=== PATIENT | female | born 2000 | race Caucasian/White ===

== ENCOUNTER 2019-02-24 15:32 | Emergency (ER) | payer MEDICAID ==
[~2019-02-24] VITALS: Ht 160 cm; Wt 60.8 kg
[2019-02-24 15:43] VITALS: BP 127/73
--- NOTE | 2019-02-24 15:52 | NUR ---
TO BED 3 WITH STEADY GAIT
--- NOTE | 2019-02-24 15:55 | NUR ---
PT AMBULATED TO ER BED 05
--- NOTE | 2019-02-24 15:58 | NUR ---
URINE COLLECTED AND SENT TO LAB
--- NOTE | 2019-02-24 16:12 | NUR ---
C/O PAIN AND BURNING DURING URINATION WITH INCREASED URGENCY AND FREQUENCY, AND LOWER BILAT ABD PAIN 6/10 ACHING. PT REPORTS YELLOW/WHITE DISCHARGE X 3 DAYS. PT DENIES FOUL ODOR. DENIES N/V/D/FEVER. BED IN LOW POSITION, SIDE RAIL UP X1. BOYFIEND AT BEDSIDE.
--- NOTE | 2019-02-24 16:22 | NUR ---
PROVIDED PT Silvina REYES, DISCUSSED TRANS VAGINAL U/S
--- NOTE | 2019-02-24 16:31 | NUR ---
US AT BEDSIDE
--- NOTE | 2019-02-24 16:31 | NUR ---
ULTRASOUND AT BEDSIDE
[2019-02-24 16:39] LABS: BASOPHILS % (AUTO) 0.3 % (0.0-2.0); EOSINOPHILS # (AUTO) 0.1 K/uL (0-0.4); EOSINOPHILS % (AUTO) 0.6 % (0.0-4.0); HEMOGLOBIN 12.7 g/dL (12.0-16.0); LYMPHOCYTES # (AUTO) 1.8 K/uL (2.5-16.5); LYMPHOCYTES % (AUTO) 21.8 % (20.5-51.1); MEAN CORPUSCULAR HEMOGLOBIN 32 pg (27-31); MEAN CORPUSCULAR HGB CONC 34 g/dL (33-37); MEAN CORPUSCULAR VOLUME 93.1 fL (80-94); MONOCYTES # (AUTO) 0.5 K/uL (0.8-1.0); MONOCYTES % (AUTO) 5.8 % (1.7-9.3); NEUTROPHILS # (AUTO) 5.8 K/uL (1.8-7.7); NEUTROPHILS % (AUTO) 71.5 % (42.2-75.2); PLATELET COUNT (AUTO) 218 K/uL (140-450); RED BLOOD CELL COUNT(AUTO) 3.97 MIL/uL (4.20-5.40); RED CELL DISTRIBUTION WIDTH 13.2 % (11.6-13.7)
[2019-02-24 16:39] LABS: APPEARANCE,URINE SL CLOUDY (CLEAR); BILIRUBIN,URINE NEGATIVE (NEGATIVE); COLOR,URINE YELLOW (YELLOW); LEUKOCYTE ESTERASE ,URINE NEGATIVE (NEGATIVE); NITRITE, URINE NEGATIVE (NEGATIVE); PH,URINE 6.5 (5.0-9.0); UGLUCOSE 3+ (NEGATIVE)
[2019-02-24 16:44] LABS: BLOOD, URINE NEGATIVE (NEGATIVE)
[2019-02-24 16:59] LABS: ANION GAP 10.3 (8-16); CARBON DIOXIDE 27.2 mmol/L (21-32); CREATININE 0.6 mg/dL (0.6-1.3); POTASSIUM 3.5 mmol/L (3.5-5.1)
[2019-02-24 17:12] LABS: ALBUMIN 3.6 g/dL (3.4-5.0); TOTAL BILIRUBIN 0.2 mg/dL (0.0-1.0)
[2019-02-24 18:59] VITALS: BP 119/80
--- NOTE | 2019-02-24 18:59 | NUR ---
Patient discharged with v/s stable. Written and verbal after care instructions given and explained. Patient verbalized understanding. Ambulatory with steady gait. All questions addressed prior to discharge. Advised to follow up with PMD.
== END 2019-02-24 18:59 | disposition home or self-care (01) ==
LOC: MED 15:32
DX: O24.419 Gestational diabetes mellitus in pregnancy, unspecified control (principal); F12.10 Cannabis abuse, uncomplicated; Z79.84 Long term (current) use of oral hypoglycemic drugs; Z3A.18 18 weeks gestation of pregnancy; Z90.49 Acquired absence of other specified parts of digestive tract; Z71.51 Drug abuse counseling and surveillance of drug abuser
CPT/HCPCS: 36415; 76805; 80053; 81003; 81025; 82948; 84702; 85025; 87086; 99284

== ENCOUNTER 2019-10-02 21:13 | Emergency (ER) | payer MEDICAID ==
[~2019-10-02] VITALS: Ht 160 cm; Wt 61.7 kg
[2019-10-02 22:35] VITALS: BP 111/77
--- NOTE | 2019-10-03 01:00 | NUR ---
PATIENT STATES NO NEW COMPLAINTS AT THIS TIME.
[2019-10-03 01:05] VITALS: BP 128/63
--- NOTE | 2019-10-03 03:00 | NUR ---
PATIENT LWBS AT THIS TIME
--- NOTE | 2019-10-03 03:00 | NUR ---
PATIENT CALLED FOR RECHECK, NO ANSWER
--- NOTE | 2019-10-03 03:20 | NUR ---
SECOND CALL NO RESPONSE.
--- NOTE | 2019-10-03 03:40 | NUR ---
3RD CALL NO RESPONSE
== END 2019-10-03 03:00 | disposition left against medical advice (07) ==
LOC: MED 21:13
DX: Z53.21 Procedure and treatment not carried out due to patient leaving prior to being seen by health care provider (principal); N89.8 Other specified noninflammatory disorders of vagina
CPT/HCPCS: 81002; 81025

== ENCOUNTER 2019-10-05 14:53 | Emergency (ER) | payer MEDICAID ==
[~2019-10-05] VITALS: Ht 160 cm; Wt 61.7 kg
[2019-10-05 15:10] VITALS: BP 116/77
--- NOTE | 2019-10-05 15:13 | NUR ---
TO LOBBY A/W BED AMBULATORY
--- NOTE | 2019-10-05 16:00 | NUR ---
Patient ambulated to bed 5. RN evaluating patient at bedside.
--- NOTE | 2019-10-05 16:07 | NUR ---
URINE CUP HANDED TO PT FOR SAMPLE
--- NOTE | 2019-10-05 16:20 | NUR ---
19 y/o f presents to ER c/o vaginal pain x 1 week. Pt was on antibiotics in August for same symptoms. Vaginal pain burning, itching, redness, with some bumps. Pain level 7/10. Pt reports vaginal bleeding, spotting while wiping. Pt also reports white thin discharge. ERMD made aware of pt status. Allergies: NKA Med hx: francis
[2019-10-05] MEDS ORDERED: AZITHROMYCIN 250 MG TAB PO ONE (16:30)
[2019-10-05] MEDS ORDERED: cefTRIAXone 250 MG in LIDOCAINE MPF 1% 0.9 ML IM ONE (16:30)
--- NOTE | 2019-10-05 16:52 | NUR ---
Dr. Escamilla and nurse Halle at bedside for pelvic exam.
[2019-10-05] MEDS ORDERED: cefTRIAXone 250 MG VIAL ONE (16:55)
--- NOTE | 2019-10-05 16:55 | NUR ---
Vaginal Swab collected and sent to lab
[2019-10-05] MEDS ORDERED: LIDOCAINE MPF 1% 5 ML ONE (16:56)
[2019-10-05 17:20] VITALS: BP 120/78
--- NOTE | 2019-10-05 17:20 | NUR ---
Note ammy in EDM - 10/05/19 at 1721 by [facility] Patient discharged with v/s stable. Written and verbal after care instructions given and explained. Patient alert, oriented and verbalized understanding of instructions. Ambulatory with steady gait. All questions addressed prior to discharge. ID band removed. Patient advised to follow up with PMD. Rx of Valacyclovir Hydrochloride 1g and Diflucan 150mg given. Patient educated on indication of medication including possible reaction and side effects. Opportunity to ask questions provided and answered.
== END 2019-10-05 17:20 | disposition home or self-care (01) ==
LOC: MED 14:53
DX: N89.8 Other specified noninflammatory disorders of vagina (principal); E11.9 Type 2 diabetes mellitus without complications; R10.2 Pelvic and perineal pain; L29.9 Pruritus, unspecified
CPT/HCPCS: 36415; 81002; 81025; 87529; 96372; 99283; J0696; J2001

== ENCOUNTER 2019-11-14 16:05 | Emergency (ER) | payer MEDICAID ==
[~2019-11-14] VITALS: Ht 161.3 cm; Wt 62.6 kg
[2019-11-14 16:09] VITALS: BP 155/69
--- NOTE | 2019-11-14 16:17 | NUR ---
AMB TO BED 04, ASKED PT TO CHANGE TO GOWN
--- NOTE | 2019-11-14 16:20 | NUR ---
ROYAL BROWNE AT BEDSIDE.
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
[2019-11-14] MEDS ORDERED: KETOROLAC 30 MG/ML VIAL IM ONE (16:35)
--- NOTE | 2019-11-14 16:36 | NUR ---
ROYAL BROWNE AT BEDSIDE REEVALUATING PT.
--- NOTE | 2019-11-14 17:10 | NUR ---
xray at bedside.
--- NOTE | 2019-11-14 17:15 | NUR ---
pt to ctscan vi awheelchair.
[2019-11-14 18:17] VITALS: BP 150/70
--- NOTE | 2019-11-14 18:17 | NUR ---
Patient discharged with v/s stable. Written and verbal after care instructions given and explained regarding back pain. Patient alert, oriented and verbalized understanding of instructions. Ambulatory with steady gait. All questions addressed prior to discharge. ID band removed. Patient advised to follow up with PMD. Rx of flexeril and ibuprofen given. Patient educated on indication of medication including possible reaction and side effects. Opportunity to ask questions provided and answered.
== END 2019-11-14 18:17 | disposition home or self-care (01) ==
LOC: MED 16:05
DX: S50.12XA Contusion of left forearm, initial encounter (principal); M54.6 Pain in thoracic spine; M79.10 Myalgia, unspecified site; E11.9 Type 2 diabetes mellitus without complications; W14.XXXA Fall from tree, initial encounter; Y93.89 Activity, other specified; Y92.89 Other specified places as the place of occurrence of the external cause; Y99.8 Other external cause status
CPT/HCPCS: 71250; 73060; 81002; 81025; 96372; 99284; J1885; Q0092

== ENCOUNTER 2019-12-21 18:48 | Inpatient (IN) | payer MEDICAID ==
[~2019-12-21] VITALS: Ht 162.6 cm; Wt 61.2 kg
[2019-12-21 18:51] VITALS: BP 160/98
[2019-12-21 19:14] LABS: BASOPHILS # (AUTO) 0.1 K/uL (0.00-0.22); BASOPHILS % (AUTO) 0.6 % (0.0-2.0); EOSINOPHILS % (AUTO) 0.4 % (0.0-4.0); HEMATOCRIT 45.3 % (36-48); HEMOGLOBIN 15.5 g/dL (12.0-16.0); LYMPHOCYTES # (AUTO) 1.3 K/uL (2.5-16.5); LYMPHOCYTES % (AUTO) 13.7 % (20.5-51.1); MEAN CORPUSCULAR HEMOGLOBIN 32 pg (27-31); MEAN CORPUSCULAR HGB CONC 34 g/dL (33-37); MEAN CORPUSCULAR VOLUME 92.2 fL (80-94); MONOCYTES # (AUTO) 0.4 K/uL (0.8-1.0); MONOCYTES % (AUTO) 4.1 % (1.7-9.3); NEUTROPHILS # (AUTO) 7.8 K/uL (1.8-7.7); NEUTROPHILS % (AUTO) 81.2 % (42.2-75.2); PLATELET COUNT (AUTO) 201 K/uL (140-450); RED BLOOD CELL COUNT(AUTO) 4.91 MIL/uL (4.20-5.40); RED CELL DISTRIBUTION WIDTH 12.9 % (11.6-13.7); WHITE BLOOD COUNT (AUTO) 9.6 K/uL (4.5-11.0)
[2019-12-21 19:46] LABS: ALBUMIN 4.6 g/dL (3.4-5.0); ANION GAP 15.2 (8-16); ASPARTATE AMINOTRANSFERASE 13 U/L (15-37); CARBON DIOXIDE 28.7 mmol/L (21-32); CHLORIDE 100 mmol/L (98-107); CREATININE 0.9 mg/dL (0.6-1.3); GFR ARICAN-AMERICAN 103 mL/min (>90); GLUCOSE 283 mg/dL (74-106); POTASSIUM 4.9 mmol/L (3.5-5.1); SODIUM SERUM 139 mmol/L (136-145); TOTAL BILIRUBIN 0.5 mg/dL (0.0-1.0); UREA NITROGEN, BLOOD 14 mg/dL (7-18)
[2019-12-21 19:47] LABS: ACETAMINOPHEN < 0.5 ug/ml (10-30); SALICYLATE < 2.8 mg/dL (2.8-20.0)
[2019-12-21 20:06] LABS: APPEARANCE,URINE CLEAR (CLEAR); BILIRUBIN,URINE NEGATIVE (NEGATIVE); BLOOD, URINE NEGATIVE (NEGATIVE); COLOR,URINE YELLOW (YELLOW); LEUKOCYTE ESTERASE ,URINE NEGATIVE (NEGATIVE); NITRITE, URINE NEGATIVE (NEGATIVE); UGLUCOSE 3+ (NEGATIVE)
[2019-12-21 20:22] LABS: BARBITURATE, URINE NEGATIVE ng/ml (NEG <=200); BENZODIAZEPINE, URINE NEGATIVE ng/mL (NEG <=200); CANNABINOID, URINE NEGATIVE ng/mL (NEG <=50); COCAINE, URINE NEGATIVE ng/mL (NEG <=300); OPIATE, URINE NEGATIVE ng/mL (NEG <=2000); PHENCYCLIDINE SCREEN,URINE NEGATIVE ng/mL (NEG <=25)
[2019-12-21] MEDS ORDERED: INTUBATION KIT MC ONE (21:37)
[2019-12-21] MEDS ORDERED: NACL 0.9% 1,000 ML IV SCH (23:43)
[2019-12-21] MEDS ORDERED: ONDANSETRON 4 MG/2 ML VIAL IM/IVP PRN (23:45)
[2019-12-21] MEDS ORDERED: HYDROcodone/APAP 5/325 MG 1 TAB TAB PO PRN (23:45)
[2019-12-21] MEDS ORDERED: DOCUSATE SODIUM 100 MG GELCAP PO PRN (23:45)
[2019-12-21] MEDS ORDERED: ACETAMINOPHEN 325 MG TAB PO PRN (23:45)
[2019-12-21] MEDS ORDERED: INSULIN LISPRO SLIDING SCALE 100 UNITS/ML VIAL SUBQ PRN (23:50)
[2019-12-21] MEDS ORDERED: DEXTROSE 50% 50 ML SYR IVP PRN (23:50)
[2019-12-22 00:11] LABS: MAGNESIUM 1.6 mg/dL (1.8-2.4); PHOSPHORUS 3.1 mg/dL (2.5-4.9)
[2019-12-22 00:30] VITALS: BP 123/83
[2019-12-22 00:34] VITALS: BP 129/85
[2019-12-22] MEDS ORDERED: GLIP10TA3 PO (00:50)
[2019-12-22 06:06] VITALS: BP 117/75
[2019-12-22 07:16] LABS: BASOPHILS % (AUTO) 0.2 % (0.0-2.0); EOSINOPHILS # (AUTO) 0.1 K/uL (0-0.4); EOSINOPHILS % (AUTO) 1.5 % (0.0-4.0); HEMATOCRIT 38.8 % (36-48); HEMOGLOBIN 13.4 g/dL (12.0-16.0); LYMPHOCYTES # (AUTO) 3.1 K/uL (2.5-16.5); MEAN CORPUSCULAR HEMOGLOBIN 32 pg (27-31); MEAN CORPUSCULAR HGB CONC 35 g/dL (33-37); MEAN CORPUSCULAR VOLUME 92.2 fL (80-94); MONOCYTES # (AUTO) 0.6 K/uL (0.8-1.0); MONOCYTES % (AUTO) 7.9 % (1.7-9.3); NEUTROPHILS # (AUTO) 3.9 K/uL (1.8-7.7); NEUTROPHILS % (AUTO) 50.4 % (42.2-75.2); PLATELET COUNT (AUTO) 176 K/uL (140-450); RED BLOOD CELL COUNT(AUTO) 4.21 MIL/uL (4.20-5.40); RED CELL DISTRIBUTION WIDTH 12.9 % (11.6-13.7); WHITE BLOOD COUNT (AUTO) 7.7 K/uL (4.5-11.0)
[2019-12-22 07:22] LABS: ANION GAP 14.8 (8-16); CARBON DIOXIDE 25.5 mmol/L (21-32); CREATININE 0.7 mg/dL (0.6-1.3); POTASSIUM 3.3 mmol/L (3.5-5.1)
[2019-12-22] MEDS ORDERED: BLOOD GLUCOSE MONITORING 1 DEV DEV FS SCH (07:30)
[2019-12-22 15:29] LABS: CHOL/HDL RATIO 3.5 (1-4.5)
== END 2019-12-22 08:40 | DRG 420 ==
LOC: MED 18:48 → MTU 23:48
PROVIDERS: ADMIT General Practice; ATTEND General Practice
DX: E11.65 Type 2 diabetes mellitus with hyperglycemia (principal); R45.851 Suicidal ideations; R82.4 Acetonuria; S51.812A Laceration without foreign body of left forearm, initial encounter; X99.9XXA Assault by unspecified sharp object, initial encounter; Y93.89 Activity, other specified; Y92.89 Other specified places as the place of occurrence of the external cause; Y99.8 Other external cause status
CPT/HCPCS: 36415; 80048; 80053; 80305; 81003; 82948; 83036; 83690; 83735; 84100; 84443; 85025; 87081; 93005; 99285; G0480; G0482; J7030

== ENCOUNTER 2020-02-13 19:06 | Emergency (ER) | payer MEDICAID ==
[~2020-02-13] VITALS: Ht 160 cm; Wt 59.0 kg
[~2020-02-13 19:06] MED LIST: GLIP10TA3 PO
[2020-02-13 19:07] VITALS: BP 145/101
--- NOTE | 2020-02-13 19:07 | NUR ---
EMILIA PALACIOS TAKEN TO CHAIR A
--- NOTE | 2020-02-13 19:24 | NUR ---
pt switched to bed 11.
--- NOTE | 2020-02-13 19:25 | NUR ---
KALYAN DALE AT BEDSIDE EVALUATING PT.
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
[2020-02-13] MEDS ORDERED: NACL 0.9% 1,000 ML IV ONE (19:45)
[2020-02-13] MEDS ORDERED: LORazepam 1 MG TAB ONE (19:48)
[2020-02-13] MEDS ORDERED: LORazepam 1 MG TAB PO ONE (19:50)
--- NOTE | 2020-02-13 19:52 | NUR ---
LT 18G IV WITH NS BOLUS RUNNING. TOLERATED WELL. NADR
--- NOTE | 2020-02-13 19:52 | NUR ---
PT REFUSED ATIVAN. ERMD MADE AWARE
[2020-02-13 19:58] LABS: BASOPHILS % (AUTO) 0.4 % (0.0-2.0); EOSINOPHILS % (AUTO) 0.1 % (0.0-4.0); HEMATOCRIT 43.8 % (36-48); HEMOGLOBIN 14.7 g/dL (12.0-16.0); LYMPHOCYTES # (AUTO) 1.2 K/uL (2.5-16.5); LYMPHOCYTES % (AUTO) 10.5 % (20.5-51.1); MEAN CORPUSCULAR HEMOGLOBIN 31 pg (27-31); MEAN CORPUSCULAR HGB CONC 34 g/dL (33-37); MEAN CORPUSCULAR VOLUME 93.2 fL (80-94); MONOCYTES # (AUTO) 0.3 K/uL (0.8-1.0); NEUTROPHILS # (AUTO) 9.5 K/uL (1.8-7.7); PLATELET COUNT (AUTO) 229 K/uL (140-450); RED CELL DISTRIBUTION WIDTH 12.4 % (11.6-13.7)
[2020-02-13 20:08] LABS: ANION GAP 21.4 (8-16); CARBON DIOXIDE 21.8 mmol/L (21-32); CHLORIDE 102 mmol/L (98-107); CREATININE 0.9 mg/dL (0.6-1.3); GFR ARICAN-AMERICAN 102 mL/min (>90); GLUCOSE 397 mg/dL (74-106); POTASSIUM 4.2 mmol/L (3.5-5.1); SODIUM SERUM 141 mmol/L (136-145); UREA NITROGEN, BLOOD 12 mg/dL (7-18)
[2020-02-13 20:09] LABS: ACETONE, SERUM NEGATIVE (NEGATIVE)
[2020-02-13 20:14] LABS: ALBUMIN 4.5 g/dL (3.4-5.0); ASPARTATE AMINOTRANSFERASE 12 U/L (15-37); TOTAL BILIRUBIN 0.5 mg/dL (0.0-1.0)
[2020-02-13 20:15] VITALS: BP 109/81
--- NOTE | 2020-02-13 20:16 | NUR ---
PT LAYING IN BED. AWAKE AND ALERT. APPEARS CALMER AND NOT CRYING. NO FURTHER NEEDS AT THIS TIME. BED LOWEST AND LOCKED, RAILS X 2. PD AT BEDSIDE.
--- NOTE | 2020-02-13 20:52 | NUR ---
PT DISCHARGED BACK TO [facility] OFFICER [address] [address] [employer]. VSS. DISCHARGE INSTRUCTIONS RELEASED TO OFFICER. WRISTBAND REMOVED.
== END 2020-02-13 20:52 ==
LOC: MED 19:06
DX: E86.0 Dehydration (principal); E11.65 Type 2 diabetes mellitus with hyperglycemia; F41.0 Panic disorder [episodic paroxysmal anxiety]; Z79.84 Long term (current) use of oral hypoglycemic drugs; Z90.49 Acquired absence of other specified parts of digestive tract
CPT/HCPCS: 36415; 80053; 82009; 85025; 96360; 99283; J7030

== ENCOUNTER 2020-02-19 07:21 | Emergency (ER) | payer MEDICAID ==
[~2020-02-19] VITALS: Ht 165.1 cm; Wt 64.0 kg
[2020-02-19 07:28] VITALS: BP 116/75
--- NOTE | 2020-02-19 07:35 | NUR ---
DR. POLLARD EVALUATING PT AT BEDSIDE
--- NOTE | 2020-02-19 07:38 | NUR ---
20/ C/O GENERALIZED ABD PAIN X LAST NIGHT WITH NAUSEA. NO VOMITING. 2X DIARRHEA THIS AM. DENIES F/C. PAIN 06/18, CRAMPY. FEELS LIKE "EVERYTHING IS MOVING IN MY STOMACH". PT STATES SHE MAY HAVE EATEN UNDERCOOKED MEAT. RECENTLY STARTED GLIPIZE PMH- MILLIE DM
[2020-02-19] MEDS ORDERED: NACL 0.9% 1,000 ML IV ONE (07:40)
[2020-02-19] MEDS ORDERED: KETOROLAC 30 MG/ML VIAL IVP ONE (07:40)
[2020-02-19] MEDS ORDERED: ONDANSETRON 4 MG/2 ML VIAL IVP ONE (07:40)
[2020-02-19] MEDS ORDERED: INSULIN REGULAR, HUMAN 100 UNIT/ML VIAL SUBQ ONE ×2 (07:45→09:10)
--- NOTE | 2020-02-19 07:46 | NUR ---
BLOOD DRAW HANDED TO DAIRY POWDER MIXER OPERATOR AT BEDSIDE
--- NOTE | 2020-02-19 07:50 | NUR ---
PT AMB TO RESTROOM TO PROVIDE URINE SAMPLE
--- NOTE | 2020-02-19 07:54 | NUR ---
XRAY AT BEDSIDE
[2020-02-19 07:58] LABS: BASOPHILS % (AUTO) 0.4 % (0.0-2.0); EOSINOPHILS # (AUTO) 0.1 K/uL (0-0.4); HEMATOCRIT 40.8 % (36-48); LYMPHOCYTES # (AUTO) 1.4 K/uL (2.5-16.5); LYMPHOCYTES % (AUTO) 17.3 % (20.5-51.1); MEAN CORPUSCULAR HEMOGLOBIN 31 pg (27-31); MEAN CORPUSCULAR HGB CONC 34 g/dL (33-37); MEAN CORPUSCULAR VOLUME 91.9 fL (80-94); MONOCYTES # (AUTO) 0.5 K/uL (0.8-1.0); MONOCYTES % (AUTO) 5.9 % (1.7-9.3); NEUTROPHILS # (AUTO) 6.3 K/uL (1.8-7.7); NEUTROPHILS % (AUTO) 75.4 % (42.2-75.2); PLATELET COUNT (AUTO) 193 K/uL (140-450); RED BLOOD CELL COUNT(AUTO) 4.44 MIL/uL (4.20-5.40); RED CELL DISTRIBUTION WIDTH 12.1 % (11.6-13.7); WHITE BLOOD COUNT (AUTO) 8.4 K/uL (4.8-10.8)
--- NOTE | 2020-02-19 08:09 | NUR ---
CALLED LAB TO [facility] URINE SAMPLE
[2020-02-19 08:16] LABS: ALBUMIN 4.1 g/dL (3.4-5.0); ANION GAP 11.4 (8-16); CARBON DIOXIDE 29.4 mmol/L (21-32); CREATININE 0.7 mg/dL (0.6-1.3); POTASSIUM 3.8 mmol/L (3.5-5.1); TOTAL BILIRUBIN 0.3 mg/dL (0.0-1.0)
[2020-02-19 08:41] LABS: APPEARANCE,URINE SL CLOUDY (CLEAR); BILIRUBIN,URINE NEGATIVE (NEGATIVE); BLOOD, URINE NEGATIVE (NEGATIVE); COLOR,URINE YELLOW (YELLOW); LEUKOCYTE ESTERASE ,URINE TRACE (NEGATIVE); NITRITE, URINE NEGATIVE (NEGATIVE); PH,URINE 7.5 (5.0-9.0); UGLUCOSE 3+ (NEGATIVE)
[2020-02-19 09:03] LABS: RBC,URINE 0-5 /HPF (0-5)
--- NOTE | 2020-02-19 09:11 | NUR ---
DR POLLARD RE-EVALUATING PT AT BEDSIDE
--- NOTE | 2020-02-19 09:58 | NUR ---
FSBS 277, notified george Lund to d/c pt per Dr. Padgett
[2020-02-19 10:00] VITALS: BP 109/62
== END 2020-02-19 09:58 | disposition home or self-care (01) ==
LOC: MED 07:21
DX: R19.7 Diarrhea, unspecified (principal); R10.9 Unspecified abdominal pain; R11.0 Nausea; E11.65 Type 2 diabetes mellitus with hyperglycemia; Z79.84 Long term (current) use of oral hypoglycemic drugs; Z90.49 Acquired absence of other specified parts of digestive tract
CPT/HCPCS: 36415; 74018; 80053; 81001; 81025; 82948; 83690; 85025; 87086; 96361; 96372; 96374; 96375; 99284; J1815; J1885; J2405; J7030